=== PATIENT | male | born 1955 | race Caucasian/White ===

== ENCOUNTER 2018-01-14 05:34 | Day surgery (SDC) | payer OTHER ==
[~2018-01-14] VITALS: Ht 177.8 cm; Wt 81.6 kg
--- NOTE | ~2018-01-14 | O ---
[facility] [place] [address] OPERATIVE REPORT Name: LUZ ELENA LAUREANO Room #: DEP [facility]#: [id number] Admission: 01/14/18 Attend Phys: Alfonso Chapman MD Discharge: 01/14/18 Date of : 55 Report #: [id number] THIS REPORT FOR: //name// CC: Moncho Chapman DATE OF SERVICE: 01/14/[address] Alfonso Chapman, Dr. Moncho Rowland. PREOPERATIVE DIAGNOSIS: Recurrent left inguinal hernia. POSTOPERATIVE DIAGNOSIS: Recurrent left inguinal hernia. PROCEDURE: Repair of recurrent left inguinal hernia with Prolene hernia system mesh. SURGEON: Alfonso Chapman MD. ANESTHESIA: Local, IV sedation. DESCRIPTION OF PROCEDURE: The patient was brought to the operating room and placed on operative table in the supine position. Sequential compression devices were in place for DVT prophylaxis. There was no indication for preoperative antibiotics. The patient underwent IV sedation. Left inguinal area was then prepped and draped in a sterile fashion. Skin and subcutaneous tissue around the left inguinal area were infiltrated with 0.5% Marcaine and 1% Xylocaine in a 1:1 mixture. Left inguinal skin incision was then performed using #10 scalpel blade. Hemostasis obtained using electrocautery as well as clamps and 2-0 chromic ties. Dissection was carried down through subcutaneous tissue to the external oblique fascia, which was then incised with a knife and opened with the Metzenbaum scissors. The ilioinguinal nerve was identified, dissected free and preserved. The cord was then elevated and held in place with a Hood drain. Cremasteric muscle fibers were then split in the direction of the fibers using clamp and electrocautery. An indirect inguinal hernia sac and preperitoneal fat was dissected free and reduced back through the internal ring. There were some adhesions and scarring around the edges of this internal ring suggestive of the previous laparoscopic hernia repair. I then placed in PHS mesh through the internal ring and the underlay patch was then deployed in the preperitoneal space. Connector was left in the internal ring. The overlay patch was then deployed into the inguinal canal. The mesh was secured at the pubic tubercle superiorly at the connector using simple interrupted 2-0 Vicryl sutures. The mesh was split and wrapped around the cord, secured to the inguinal ligament with simple interrupted 2-0 Vicryl suture. The cord and ilioinguinal nerve then returned to the canal intact. The external oblique [address] [address] OPERATIVE REPORT Name: GEORGILUZ ELENA Raquel [id number] Admission: 01/14/18 Attend Phys: Alfonso Chapman MD Discharge: 01/14/18 Date of : 55 Report #: [id number] fascia was then closed using running 2-0 Vicryl suture. Jose Angel fascia was then reapproximated using 3 simple interrupted 2-0 chromic sutures and the skin then closed with a running 4-0 subcuticular Vicryl stitch. The wound was then dressed with Mastisol, 1/2-inch Steri-Strips cut in half, Telfa, 4 x 4 gauze, sponge and tape. The patient was then taken to the recovery room awake, alert and in good condition. Estimated blood loss was approximately 5 mL and the patient tolerated the procedure well. All sponge, lap and instrument counts correct x 2. <ELECTRONICALLY SIGNED> By: Alfonso Chapman MD 01/15/18 1601 1304 [id number] Alfonso Chapman MD /nt
--- NOTE | ~2018-01-14 | EKG ---
[address] [address] ELECTROCARDIOGRAM REPORT Name: LUZ ELENA LAUREANO Room #: 150-8 [facility].#: [id number] Admission: 01/14/18 Attend Phys: Alfonso Chapman MD Discharge: Date of : 55 Report #: [id number] THIS REPORT FOR: //name// [facility] Test Date: 2018-01-14 Test Time: 10:25:38 Pat Name: LUZ ELENA LAUREANO Department: Room: 150 8 Gender: M Software Systems Architect: RICARDO : 1955 Requested By: Alfonso Chapman Order Number: [id number] MD: Roman Huerta Measurements Intervals [place] Rate: 59 P: 20 SC: 143 QRS: -30 QRSD: 116 T: 17 QT: 419 QTc: 415 Interpretive Statements Sinus rhythm Probable left atrial enlargement Left ventricular hypertrophy Anterior ST elevation, probably due to LVH No previous ECG available for comparison Electronically Signed On 01-14-2018 16:26:42 CDT by Roman Huerta [email or web address] <ELECTRONICALLY SIGNED> By: Roman Huerta MD 01/14/18 1626 D: [id number] Roman Huerta MD /JORGE
[~2018-01-14 05:34] MED LIST: ALENDRONATE SOD70 MG PO; AMLODIPINE BESY10 MG PO; ASPIR 8181 MG PO; CENTRUM SILVER1 EAC2 PO; COREG25 MG PO; FLOMAX0.4 MG PO; METHOTREXATE 22.5 MG PO; PREDNISONE 5 MG5 M1 PO; PROTONIX40 M1 PO; VITAMIN D50000 UNIT PO; VITAMINC500 PO
[2018-01-14 10:28] LABS: CALCIUM 9.4 mg/dL (8.5-10.1); POTASSIUM 4.1 mmol/L (3.5-5.1)
[2018-01-14 11:00] VITALS: BP 155/88
[2018-01-14] MEDS ORDERED: NORCO 5-325 TA1 EACH PO (11:37)
[2018-01-14 13:18] VITALS: BP 155/88
== END 2018-01-14 13:58 | disposition home or self-care (01) ==
LOC: OR 05:34 → TBA 05:34 → OR 09:22
PROVIDERS: Surgery
DX: K40.91 Unilateral inguinal hernia, without obstruction or gangrene, recurrent (principal); I10 Essential (primary) hypertension; K21.9 Gastro-esophageal reflux disease without esophagitis; Z98.890 Other specified postprocedural states; Z96.641 Presence of right artificial hip joint; Z79.899 Other long term (current) drug therapy; Z79.82 Long term (current) use of aspirin; Z79.891 Long term (current) use of opiate analgesic
CPT/HCPCS: 50010; 50101; 50386; 50417; 54111; 56524; 56526; 56528; 62110; 62900; 70005

== ENCOUNTER → 2018-05-21 | Outpatient (CLI) | payer OTHER ==
[~2018-05-21] MED LIST changes: +NORCO 5-325 TA1 EACH PO
== END ==
LOC: NUC 07:09
DX: R07.9 Chest pain, unspecified (principal); I38 Endocarditis, valve unspecified; I10 Essential (primary) hypertension

== ENCOUNTER → 2018-11-19 | Outpatient (CLI) | payer OTHER ==
--- NOTE | 2018-11-19 10:48 | 2DMMODE ---
[facility] [address] [place] [address] 2 D/M-MODE ECHOCARDIOGRAM Name: GEORGILUZ ELENA ELOY [facility] [id number] ������������� Admission: 11/19/18 ������������� Attend Phys: Deuce Cho MD Discharge: ��� ������������� ��� Date of : 55 Date of Service: 11/19/18 1048 �� Report #: [id number] �������� ��������������������������������������������[id number] THIS REPORT FOR: //name// APPROVED REPORT Study performed: 11/19/2018 09:36:13 EXAM: Comprehensive 2D, Doppler, and color-flow Echocardiogram Patient Location: Out-Patient Room #: Echo lab 1 Status: routine BSA: 2.04 HR: 59 bpm BP: 152/86 mmHg Rhythm: Bradycardia Other Information Study Quality: Good Indications Aortic Valve Disease Hypertension/HDD 2D Dimensions RVDd: 39.31 mm IVSd: 10.83 (7-11mm) LVOT Diam: 21.54 (18-24mm) LVDd: 52.11 mm PWd: 11.01 (7-11mm) Ascending Ao: 35.38 (22-36mm) LVDs: 29.62 (25-40mm) Aortic Root: 34.24 mm IVC: 11.00 mm Volumes Left Atrial Volume (Systole) Single Plane 4CH: 67.89 mL Single Plane 2CH: 62.70 mL LA ESV Index: 35.00 mL/m2 Aortic Valve AoV Peak Corey.: 2.95 m/s AO Peak Gr.: 34.91 mmHg LVOT Max P.35 mmHg AO Mean Gr.: 18.06 mmHg LVOT Mean P.89 mmHg AO V2 Mean: 1.98 m/s LVOT Max V: 0.92 m/s AO V2 VTI: 74.58 cm LVOT Mean V: 0.65 m/s ARJUN (VTI): 1.37 cm2 LVOT V1 VTI: 28.13 cm ARJUN Vmax: 1.13 cm2 AI Vmax: 4.63 m/s SV (LVOT): 102.49 mL [facility] [place] [address] [address] 2 D/M-MODE ECHOCARDIOGRAM Name: GEORGILUZ ELENA SCHILLINGNE Room [facility]: [facility] [id number] ������������� Admission: 11/19/18 ������������� Attend Phys: Deuce Cho MD Discharge: ��� ������������� ��� Date of : 55 Date of Service: 11/19/18 1048 �� Report #: [id number] �������� ��������������������������������������������[id number] AI Carver: 2.12 m/s2 AI PHT: 634.96 ms Mitral Valve E/A Ratio: 1.4 MV Decel. Time: 180.09 ms MV E Max Corey.: 1.15 m/s MV A Corey.: 0.84 m/s MV PHT: 52.23 ms IVRT: 73.82 ms Pulmonary Valve PV Peak Corey.: 1.23 m/s PV Peak Gr.: 6.05 mmHg Pulmonary Vein P Vein S: 0.59 m/s P Vein A: 0.34 m/s P Vein D: 0.62 m/s P Vein A Dur.: 106.1 msec P Vein S/D Ratio: 0.95 Tricuspid Valve TR Peak Corey.: 2.75 m/s TR Peak Gr.: 30.25 mmHg PA Pressure: 35.00 mmHg Left Ventricle The left ventricle is normal size. There is normal LV segmental wall motion. There is normal left ventricular wall thickness. The left ventricular systolic function is normal. The left ventricular ejection fraction is within the normal range. LVEF is 60-65%. Grade II - pseudonormal filling dynamics. Right Ventricle The right ventricle is normal size. The right ventricular systolic function is normal. Atria Left atrium is dilated. Right atrium is dilated. Aortic Valve Aortic valve is bicuspid. Aortic valve is calcified. Mild to moderate aortic regurgitation. Moderate aortic stenosis. Mitral Valve The mitral valve is normal in structure. Mild mitral regurgitation. No evidence of mitral valve stenosis. [facility] [address] [place] [address] 2 D/M-MODE ECHOCARDIOGRAM Name: LUZ ELENA LAUREANO Room #: RACHAEL Salas#: [id number] ������������� Admission: 11/19/18 ������������� Attend Phys: Deuce Cho MD Discharge: ��� ������������� ��� Date of : 55 Date of Service: 11/19/18 1048 �� Report #: [id number] �������� ��������������������������������������������[id number] Tricuspid Valve The tricuspid valve is normal in structure. There is mild tricuspid regurgitation. Estimated PAP 35 mmHg. There is mild pulmonary hypertension. Pulmonic Valve The pulmonary valve is normal in structure. Trace pulmonic regurgitation. Great Vessels The aortic root is normal in size. IVC is normal in size and collapses >50% with inspiration. Pericardium There is no pericardial effusion. <Conclusion> The left ventricle is normal size. There is normal left ventricular wall thickness. The left ventricular systolic function is normal. Grade II - pseudonormal filling dynamics. The right ventricle is normal size. Left atrium is dilated. Right atrium is dilated. Mild to moderate aortic regurgitation. Moderate aortic stenosis. There is mild tricuspid regurgitation. Estimated PAP 35 mmHg. Mild mitral regurgitation. ��������������������������������������������� <ELECTRONICALLY SIGNED> ���������������������������������������� By: Deuce Cho MD ��������������������������������������������� 11/19/18 1048 1048 1048 Deuce Cho MD /INF
== END ==
LOC: CV 09:19
DX: I08.3 Combined rheumatic disorders of mitral, aortic and tricuspid valves (principal); I27.20 Pulmonary hypertension, unspecified; I10 Essential (primary) hypertension

== ENCOUNTER → 2018-11-23 | Outpatient (CLI) | payer OTHER | LOC: CAT 09:58 | DX: Z13.6 Encounter for screening for cardiovascular disorders (principal); I25.10 Atherosclerotic heart disease of native coronary artery without angina pectoris; E78.00 Pure hypercholesterolemia, unspecified ==

== ENCOUNTER → 2019-05-20 | Outpatient (CLI) | payer OTHER | LOC: SJCVC 09:39 | DX: I25.10 Atherosclerotic heart disease of native coronary artery without angina pectoris (principal); E78.00 Pure hypercholesterolemia, unspecified; I10 Essential (primary) hypertension; I35.0 Nonrheumatic aortic (valve) stenosis; K21.9 Gastro-esophageal reflux disease without esophagitis; Z79.899 Other long term (current) drug therapy ==

== ENCOUNTER → 2020-12-21 | Outpatient (CLI) | payer OTHER | LOC: SJCVCIMAG 08:50 | PROVIDERS: ATTEND Internal Medicine Cardiovascular Disease | DX: I08.2 Rheumatic disorders of both aortic and tricuspid valves (principal); R94.31 Abnormal electrocardiogram [ECG] [EKG]; I25.10 Atherosclerotic heart disease of native coronary artery without angina pectoris; I10 Essential (primary) hypertension; E78.00 Pure hypercholesterolemia, unspecified; K21.9 Gastro-esophageal reflux disease without esophagitis; R93.1 Abnormal findings on diagnostic imaging of heart and coronary circulation; E78.5 Hyperlipidemia, unspecified; Z79.899 Other long term (current) drug therapy; Z79.82 Long term (current) use of aspirin; Z72.89 Other problems related to lifestyle ==